=== PATIENT | female | born 1980 | race Caucasian/White ===

== ENCOUNTER 2017-05-26 14:03 | Day surgery (SDC) | payer OTHER ==
[2017-05-24 14:10] VITALS: BMI 28.1
[2017-05-26] MEDS ORDERED: oxyCODONE HCL 5 MG TABLET PO PRN (15:56)
[2017-05-26] MEDS ORDERED: ONDANSETRON 4 MG/2 ML VIAL IVPUSH PRN ×2 (15:56→17:48)
[2017-05-26] MEDS ORDERED: LACTATED RINGERS SOLUTION 1,000 ML IV SCH ×2 (16:00→18:00)
[2017-05-26] MEDS ORDERED: PROPOFOL 20 ML ONE ×2 (16:18→16:55)
[2017-05-26] MEDS ORDERED: MIDAZOLAM HCL 2 MG/2 ML SINGLE DOSE VIAL ONE ×2 (16:18→16:42)
[2017-05-26] MEDS ORDERED: DEXAMETHASONE SOD PHOSPHATE 4 MG/1 ML VIAL ONE (16:59)
[2017-05-26] MEDS ORDERED: ONDANSETRON 4 MG/2 ML VIAL ONE (16:59)
[2017-05-26] MEDS ORDERED: KETOROLAC TROMETHAMINE 30 MG/1 ML VIAL ONE (17:32)
[2017-05-26] MEDS ORDERED: PROMETHAZINE HCL 25 MG/1 ML VIAL IVPB PRN (17:48)
[2017-05-26 19:02] VITALS: TEMP 97.7
[2017-05-26 19:04] VITALS: PULSE 67
[2017-05-26 19:33] VITALS: BP 136/86
--- NOTE | 2017-05-28 08:09 | OP ---
DATE OF OPERATION: 05/26/2017 PREOPERATIVE DIAGNOSIS: Right carpal tunnel syndrome. POSTOPERATIVE DIAGNOSIS: Right carpal tunnel syndrome. OPERATIVE PROCEDURE: Right endoscopic carpal tunnel release. ANESTHESIA: General. COMPLICATIONS: None. ESTIMATED BLOOD LOSS: Minimal. INDICATIONS FOR PROCEDURE: The patient is a 36-year-old female with the above findings indicated for operative treatment. Risks, benefits, and alternatives were discussed with the patient at length, and proper informed consent was obtained. DESCRIPTION OF PROCEDURE: After proper identification of patient and correct operative site, the patient was brought to the operating room and placed supine on the operative table. All bony prominences were well padded. General anesthesia was provided by the anesthesiologist adequate for procedure. Right upper extremity was prepped and draped in the usual sterile fashion. Superficial landmarks were drawn on the skin. Esmarch bandage used to exsanguinate the right upper extremity. Tourniquet was inflated to 250 mmHg. Transverse incision was made over the proximal wrist crease just ulnar to the palmaris longus tendon. Incision was taken sharply through the skin with sharp and blunt dissection through the subcutaneous tissues. Antebrachial fascia was visualized, and a full-thickness, distally based flap was developed. The canal was then entered and elevated and used to free any soft tissue off the undersurface of the transcarpal ligament. The hamate finder dilators were used to prepare the canal, and the Micro-Aire endoscopic carpal tunnel release system was inserted to the distal edge of the transplant ligament. At all times throughout the procedure excellent visualization was achieved, and at no time was any soft tissue allowed to interpose between the transcarpal ligament and the blade. The blade was then deployed, and the transcarpal ligament was divided. The distal aspect of the antebrachial fascia was also divided longitudinally under direct visualization with loupe magnification. This provided complete release of the median nerve at the wrist. The wound was irrigated with saline and repaired with a 4-0 Monocryl suture. Steri-Strips and sterile dressings were applied. The patient was reversed from anesthesia and brought to the recovery room in stable condition. She tolerated the procedure well. Jay [id number]
== END 2017-05-26 19:34 | disposition home or self-care (01) ==
LOC: FASU 14:03
PROVIDERS: ATTEND Orthopaedic Surgery Hand Surgery
PROC: 01N50ZZ Release Median Nerve, Open Approach (ICD-10-PCS; principal; 2017-05-26 17:20)
DX: G56.01 Carpal tunnel syndrome, right upper limb (principal)
CPT/HCPCS: 84703; 94760